=== PATIENT | male | born 1995 | race Two or more races ===

== ENCOUNTER 2016-05-01 01:31 | Emergency (ER) | payer OTHER ==
[~2016-05-01] VITALS: Ht 170.2 cm; Wt 68.9 kg
[2016-05-01] MEDS ORDERED: ALBUTEROL2.5 MG/3 M INH (01:38)
[2016-05-01 01:40] VITALS: BP 106/73
[2016-05-01] MEDS ORDERED: Albuterol ud Inhalation HHN ONE (01:45)
[2016-05-01] MEDS ORDERED: Ipratropium 0.02% Inh Soln 2.5ml UD HHN ONE (01:45)
[2016-05-01] MEDS ORDERED: PredniSONE 20mg tab ORAL ONE (01:45)
[2016-05-01] MEDS ORDERED: ALBUTEROL SULF8.5 GM INH (02:14)
--- NOTE | 2016-05-01 02:14 | Emergency Room Report ---
History of Present Illness General Chief Complaint: Asthma Source: Patient Present Illness HPI This is a 20-year-old male with history of asthma. He lost his inhaler about 2 weeks ago. He presents in custody. He was arrested for outstanding warrant. While in halfway, he complained of feeling suicidal and wheezing. Denies any fever chills denies any nausea vomiting. he has no specific plan. Brought here to be medically clear and treated. No other complaint. Allergies: Coded Allergies: No Known Allergies (Unverified , 05/01/16) Patient History Past Medical History: see triage record, old chart reviewed, asthma Past Surgical History: other Pertinent Family History: none Social History: Reports: smoking Immunizations: other Reviewed Nursing Documentation: PMH: Agreed, PSxH: Agreed Nursing Documentation-PMH Hx Asthma: Yes Review of Systems Eye: Denies: blurred vision, eye pain ENT: Denies: ear pain, nose congestion, throat swelling Respiratory: Reports: shortness of breath, wheezing, Denies: cough Cardiovascular: Denies: chest pain, palpitations Gastrointestinal: Denies: abdominal pain, diarrhea, nausea, vomiting Musculoskeletal: Denies: back pain, joint pain Skin: Denies: rash Neurological: Denies: headache, numbness Endocrine: Denies: increased thirst, increased urine Hematologic/Lymphatic: Denies: easy bruising All Other Systems: negative except mentioned in HPI Physical Exam Vital Signs Date Time Temp Pulse Resp B/P Pulse Ox O2 Delivery O2 Flow Rate FiO2 05/01/16 01:32 97.5 71 18 106/73 100 Room Air 05/01/16 01:47 21 vitals normal Sp02 EP Interpretation: reviewed, normal General Appearance: well appearing, no apparent distress, alert Head: normocephalic, atraumatic Eyes: bilateral eye EOMI, bilateral eye PERRL ENT: hearing grossly normal, normal pharynx Neck: full range of motion, supple, no meningismus Respiratory: chest non-tender, wheezing Cardiovascular #1: regular rate, rhythm, no murmur Gastrointestinal: normal bowel sounds, non tender, no mass, no organomegaly, no bruit, non-distended Musculoskeletal: back normal, gait/station normal, normal range of motion Psychiatric: mood/affect normal Skin: warm/dry Medical Decision Making Diagnostic Impression: Primary Impression: Asthma attack Additional Impression: Suicidal ideations ER Course Patient presents with asthma exacerbation. Wheezing cleared with breathing treatment. We'll discharge home. No evidence of respiratory failure. As far as his suicidal thoughts, this is probably malingering. He will be placed however under suicidal watch in halfway. Police officers agreed that this is the protocol. Last Vital Signs Date Time Temp Pulse Resp B/P Pulse Ox O2 Delivery O2 Flow Rate FiO2 05/01/16 01:48 63 18 66 Room Air 21 05/01/16 01:40 97.5 106/73 Status: improved Disposition: D/C TO LAW ENFORCEMENT IN CUST Condition: Stable Scripts Albuterol Sulfate* (ALBUTEROL SULFATE MDI*) 8.5 Gm Hfa.aer.ad 2 PUFF INH Q4H Y for cough/wheezing, #1 EA 0 Refills Prov: TU CLARK M.D. 05/01/16 Patient Instructions: Asthma, Adult Additional Instructions: Followup with halfway doctor as needed. You will be placed in a suicide watch. Return if symptom worsen. TU CLARK M.D. May 01, 2016 02:14
[2016-05-01 02:15] VITALS: BP 106/73
== END 2016-05-01 02:15 ==
LOC: EDBD 01:31 → EMR 02:10
DX: J45.901 Unspecified asthma with (acute) exacerbation (principal); R45.851 Suicidal ideations; F17.200 Nicotine dependence, unspecified, uncomplicated
CPT/HCPCS: 94640; 94664; 99283